=== PATIENT | male | born 1995 | race Caucasian/White ===

== ENCOUNTER 2019-01-13 10:17 | Emergency (ER) | payer BC, OTHER ==
[2019-01-13 10:25] VITALS: BP 116/73; PULSE 56; TEMP 97.6; BMI 25.7
--- NOTE | 2019-01-13 11:54 | PDOC ---
History of Present Illness - General Chief Complaint: Pain, Acute Stated Complaint: NECK PAIN Time Seen by Provider: 01/13/19 11:06 - History of Present Illness Initial Comments: 01/13/19 11:45 CHIEF COMPLAINT: neck/back pain HISTORY OF PRESENT ILLNESS: 23 yo M with no PMH presents to [facility] with neck and upper back pain s/p rugby injury 5 days ago. Patient reports he was being tackled and felt his neck "crunch up." He has taken Aleve for the past few days for the pain without improvement. Denies any LOC, vomiting, headache, dizziness, change in vision. No recent travel or sick contacts. PAST MEDICAL HISTORY: Denies past medical history FAMILY HISTORY: Denies SOCIAL HISTORY: Denies tobacco, alcohol, illicit drug use. SURGICAL HISTORY: Denies ALLERGIES: banana, cefaclor, gluten REVIEW OF SYSTEMS General/Constitutional: Denies fever or chills. Denies weakness, weight change. HEENT: Denies change in vision. Denies ear pain or discharge. Denies sore throat. Cardiovascular: Denies chest pain or shortness of breath. Respiratory: Denies cough, wheezing, or hemoptysis. Gastrointestinal: Denies nausea, vomiting, diarrhea or constipation. Denies rectal bleeding. Genitourinary: Denies dysuria, frequency, or change in urination. Musculoskeletal: Neck and back pain. Skin and breasts: Denies rash or easy bruising. Neurologic: Denies headache, vertigo, loss of consciousness, or loss of sensation. Psychiatric: Denies depression or anxiety. Endocrine: Denies increased thirst. Denies abnormal weight change. Hematologic/Lymphatic: Denies anemia, easy bleeding, or history of blood clots. Allergic/Immunologic: Denies hives or skin allergy. Denies latex allergy. PHYSICAL EXAM General Appearance: Well-appearing, appropriately dressed. No apparent distress , no intoxication. HEENT: EOMI, PERRLA, normal ENT inspection, normal voice, TMs normal, pharynx normal. No conjunctival pallor. No photophobia, scleral icterus. Neck: Supple. Trachea midline. No tenderness, rigidity, carotid bruit, stridor , lymphadenopathy, or thyromegaly. Respiratory/Chest: Lungs CTAB. No shortness of breath, chest tenderness, respiratory distress, accessory muscle use. No crackles, rales, rhonchi, stridor , wheezing, dullness Cardiovascular: RRR. S1, S2. No JVD, murmur, bradycardia, tachycardia. Vascular Pulses: Dorsalis-Pedis (R): 2+, Dorsalis-Pedis (L): 2+ Gastrointestinal/Abdominal: Normal bowel sounds. Abdomen soft, non-distended. No tenderness or rebound tenderness. No organomegaly, pulsatile mass, guarding , hernia, hepatomegaly, splenomegaly. Lymphatic: No adenopathy, tenderness. Musculoskeletal/Extremities: Tenderness to midline spine at T3 and to R trapezius. Full extension/flexion/rotation to neck. FROM of all other extremities, normal capillary refill. Pelvis Stable. No CVA tenderness. No tenderness to extremities, pedal edema, swelling, erythema or deformity. Integumentary: Appropriate color, dry, warm. No cyanosis, erythema, jaundice or rash Neurologic: shape hand II-XII intact. Fully oriented, alert. Appropriate mood/affect. Motor strength 5/5. No appreciable EOM palsy, facial droop or sensory deficit. Past History - Past Medical History Allergies/Adverse Reactions: Allergies Allergy/AdvReac Type Severity Reaction Status Date / Time banana [Banana] Allergy Difficulty Verified 01/13/19 10:25 Breathing cefaclor [Cefaclor] Allergy Verified 01/13/19 10:25 gluten Allergy Verified 01/13/19 10:25 Home Medications: Ambulatory Orders Cyclobenzaprine HCl [Flexeril -] 10 mg PO HS #7 tablet 01/13/19 Naproxen [Naprosyn -] 500 mg PO BID #14 tablet 01/13/19 COPD: No - Psycho Social/Smoking Cessation Hx Smoking History: Never smoked Hx Alcohol Use: No Substance Use Type: None *Physical Exam - Vital Signs Last Vital Signs Temp Pulse Resp BP Pulse Ox 97.6 F 56 L 16 116/73 99 01/13/19 10:21 01/13/19 10:21 01/13/19 10:21 01/13/19 10:21 01/13/19 10:21 ED Treatment Course - RADIOLOGY Radiology Studies Ordered: Category Date Time Status CERVICAL SPINE CT W/O CONTR [CT] Stat CT Scan 01/13/19 11:[address] W/O CONTRAST [CT] Stat CT Scan 01/13/19 11:31 Ordered Medical Decision Making - Medical Decision Making 01/13/19 11:54 23 yo M with no PMH presents to [facility] with neck and upper back pain s/p rugby injury 5 days ago. -CT cervical/thoracic spine 01/13/19 13:20 Advised patient to take medication as prescribed and follow up with ortho if symptoms persist past 1-2 weeks. Advised patient of signs and symptoms for return to ED. Patient verbalized understanding and agrees to plan. Discharge - Discharge Information Problems reviewed: Yes Clinical Impression/Diagnosis: Cervical paraspinal muscle spasm Condition: Stable Disposition: HOME - Admission No - Additional Discharge Information Prescriptions: Cyclobenzaprine HCl [Flexeril -] 10 mg PO HS #7 tablet Naproxen [Naprosyn -] 500 mg PO BID #14 tablet - Follow up/Referral Referrals: Lacho Fuentes DO [Staff Physician] - - Patient Discharge Instructions Patient Printed Discharge Instructions: DI for Cervical Muscle Strain, DI for Muscle Spasm - Post Discharge Activity
== END 2019-01-13 14:46 | disposition home or self-care (01) ==
LOC: JERFT 10:17
DX: M62.838 Other muscle spasm (principal); Z91.018 Allergy to other foods; Z88.8 Allergy status to other drugs, medicaments and biological substances
CPT/HCPCS: 72125-TC; 72128-TC; 99282-25